=== PATIENT | male | born 1945 ===

== ENCOUNTER 2018-08-16 09:41 | Day surgery (SDC) | payer MEDICARE, BC ==
[2018-08-16] MEDS ORDERED: Midazolam 2 MG/2 ML VIAL ONE (14:01)
[2018-08-16] MEDS ORDERED: Propofol 10 mg/ml Inj (20 ML) ONE ×2 (14:01→14:22)
[2018-08-16] MEDS ORDERED: Ciprofloxacin 400mg/200ml D5W 400 MG/200 ML BAG IVPB ONE (14:05)
[2018-08-16] MEDS ORDERED: Lidocaine 2% Jelly (Uro-Jet) ONE (14:05)
[2018-08-16] MEDS ORDERED: cefTRIAXone 1 gm 1 GM/100 ML BAG IVPB ONE (14:05)
[2018-08-16] MEDS ORDERED: HYDROmorphone 0.5 mg/0.5 ml ISec IVP PRN (14:32)
[2018-08-16] MEDS ORDERED: Lactated Ringer's 1,000 ML IV ONE (14:44)
--- NOTE | 2018-08-16 14:49 | PCM.SURG1 ---
Surgeon's Initial Post Op Note - Surgeon's Notes Surgeon: shelley Brazing Machine Tender: none Type of Anesthesia: General IV Anesthesia Administered By: Pre-Operative Diagnosis: bph prostatitis Operative Findings: bph prostatitis Post-Operative Diagnosis: bph prostatitis Operation Performed: cystoscopy prostate u.s biopsies Specimen/Specimens Removed: prostate tissue Estimated Blood Loss: EBL {In ML}: 1 Blood Products Given: N/A Drains Used: No Drains Post-Op Condition: Good Date of Surgery/Procedure: 08/16/18 Time of Surgery/Procedure: 14:50
[2018-08-16 15:00] VITALS: TEMP 97.2; O2SAT 99
[2018-08-16 15:14] VITALS: RESP 12
[2018-08-16 16:20] VITALS: PULSE 69
[2018-08-16 16:41] VITALS: BP 126/75
--- NOTE | 2018-08-20 09:48 | OP ---
PROCEDURE DATE: 08/16/2018 PREOPERATIVE DIAGNOSES: Benign prostatic hyperplasia, elevated prostate-specific antigen. POSTOPERATIVE DIAGNOSES: Benign prostatic hyperplasia, elevated prostate-specific antigen. PROCEDURE: Cystoscopy, prostate ultrasound biopsy. SURGEON: Reuben Vang MD FINDINGS: Good bladder capacity. No tumors or stones were observed during emptying or filling of the bladder. Urethral orifice is normally placed and in configuration, and large lateral lobes of the prostate gland with inflammation of the prostate noted. Elongated prosthetic urethra, membranous and pendulous urethra normal. TECHNIQUE: This patient was placed in lithotomy position. The external genitalia was prepped and draped in usual sterile fashion. A #18 panendoscope was introduced into the bladder under direct vision, findings as above. Cystoscopy was terminated. Using a rectal ultrasound probe that was placed in the patient's rectum, there was poor visualization of the prostate gland with some hypoechoic lesion. Using a bioptic needle, the right lateral lobe was biopsied making six passes. In the left lateral lobe, two passes were made only because of prostate bleeding. After the procedure, the pressure was applied to the prostate capsule for controlling of bleeding. The rectum was thoroughly irrigated with normal saline. Patient returned to the recovery room in satisfactory condition. Reuben Vang MD
== END 2018-08-16 16:48 | disposition home or self-care (01) ==
LOC: C.SDS 09:41
PROVIDERS: ATTEND Urology
DX: N40.1 Benign prostatic hyperplasia with lower urinary tract symptoms (principal)
CPT/HCPCS: 55899; 82948; 88305; 88342; J0696; J0744; J7120